=== PATIENT | female | born 1950 | race Two or more races ===

== ENCOUNTER 2021-11-14 06:51 | Day surgery (SDC) | payer OTHER ==
[~2021-11-14 06:51] MED LIST: ANASTROZOLE1 MG PO
== END 2021-11-14 21:30 | disposition home or self-care (01) ==
LOC: CIR.AMB 06:51
PROVIDERS: ATTEND Surgery
DX: D05.12 Intraductal carcinoma in situ of left breast (principal); C77.3 Secondary and unspecified malignant neoplasm of axilla and upper limb lymph nodes; Z20.822 Contact with and (suspected) exposure to COVID-19